=== PATIENT | female | born 2000 | race Two or more races ===

== ENCOUNTER 2024-12-22 03:32 | Emergency (ER) | payer SELFPAY ==
[2024-12-22 04:09] LABS: BASOPHILS PERCENT AUTO 0.1 % (0.0-1.0); EOSINOPHILS ABSOLUTE AUTO 0.1 K/mm3 (0.0-0.4); EOSINOPHILS PERCENT AUTO 0.6 % (0.0-6.0); HEMATOCRIT 38.2 % (37.0-47.0); HEMOGLOBIN 12.7 gm/dl (12.0-16.0); IMMATURE GRAN ABSOLUTE AUTO 0.05 K/mm3 (0.00-0.05); IMMATURE GRAN PERCENT AUTO 0.3 % (0.0-0.4); LYMPHOCYTES PERCENT AUTO 25.4 % (24.0-44.0); MEAN CORPUSCULAR HEMOGLOBIN 29.8 pg (28.0-32.0); MEAN CORPUSCULAR HGB CONC 33.2 g/dl (32.0-36.0); MEAN CORPUSCULAR VOLUME 89.7 fl (83.0-99.0); MEAN PLATELET VOLUME 9.8 fl (9.4-12.3); MONOCYTES ABSOLUTE AUTO 0.8 K/mm3 (0.0-0.8); MONOCYTES PERCENT AUTO 5.2 % (0.0-8.0); NEUTROPHILS ABSOLUTE AUTO 10.6 K/mm3 (1.8-7.7); NEUTROPHILS PERCENT AUTO 68.4 % (41.0-71.0); PLATELET COUNT,PLT 276 K/mm3 (150-400); RED BLOOD CELL COUNT 4.26 M/mm3 (4.10-5.30); WHITE BLOOD CELL COUNT,WBC 15.53 K/mm3 (3.9-11.3)
[2024-12-22] MEDS: Sodium Chloride 0.9% 1,000 ML IV ONE (04:11)
[2024-12-22] MEDS: Famotidine 20 MG/2 ML SDV IVPUSH ONE (04:12)
[2024-12-22] MEDS: Ondansetron 4 MG/2 ML SDV IVPUSH ONE ×2 (04:12→04:13)
[2024-12-22] MEDS: Pantoprazole 40 MG Vial IVPUSH ONE (04:12)
[2024-12-22] MEDS: Alum Hydrox/Mag Hydrox/Simeth 30 ML, Lidocaine 2% 15 ML PO ONE (04:12)
[2024-12-22 04:52] LABS: A/G RATIO 1.1 (1-2); ANION GAP 12.3 (5-15); BILIRUBIN TOTAL 0.6 mg/dL (0.2-1.0); BUN/CREATININE RATIO 13.3 (14-18); CALCIUM 9.3 mg/dL (8.5-10.1); CREATININE 0.9 mg/dL (0.55-1.02); EST CRCL DRUG DOSING (CG) 85.33 mL/min; POTASSIUM,K 3.3 mEq/L (3.5-5.1); PROTEIN TOTAL,TP 7.6 g/dl (6.4-8.2)
[2024-12-22 04:59] LABS: BARBITURATE SCREEN,URINE NEGATIVE (CUTOFF=200); BENZODIAZEPINES SCREEN,URINE NEGATIVE (CUTOFF=150); BUPRENORPHINE SCREEN,URINE NEGATIVE (CUTOFF=10); METHADONE SCREEN, URINE NEGATIVE (CUTOFF=200); METHAMPHETAMINES SCREEN, URINE NEGATIVE (CUTOFF=500); OXYCODONE SCREEN,URINE NEGATIVE (CUT0FF=100); THC SCREEN,URINE 20 NG/ML NEGATIVE (CUTOFF=50)
[2024-12-22 05:00] LABS: AMPHETAMINES SCREEN, URINE NEGATIVE (CUTOFF=500)
[2024-12-22] MEDS: Iopamidol 612 MG/ML 100 ML Bottle IVPUSH ONE (05:18)
[2024-12-22] MEDS: Sodium Chloride 0.9% 10 ML Syringe FLUSH PRN (05:18)
== END 2024-12-22 06:57 | disposition home or self-care (01) ==
LOC: JD.ED 03:32
DX: K29.70 Gastritis, unspecified, without bleeding (principal); K21.9 Gastro-esophageal reflux disease without esophagitis; Z79.899 Other long term (current) drug therapy
CPT/HCPCS: 36415; 74177; 80053; 80306; 80307; 81025; 83690; 85025; 96361; 96374; 96375; 99284; A9270; J2405; J2470; J7030; Q9967

== ENCOUNTER 2025-02-07 03:24 | Emergency (ER) | payer SELFPAY ==
[2025-02-07 04:13] LABS: BASOPHILS PERCENT AUTO 0.3 % (0.0-1.0); EOSINOPHILS ABSOLUTE AUTO 0.1 K/mm3 (0.0-0.4); EOSINOPHILS PERCENT AUTO 0.8 % (0.0-6.0); HEMATOCRIT 38.3 % (37.0-47.0); HEMOGLOBIN 12.8 gm/dl (12.0-16.0); IMMATURE GRAN ABSOLUTE AUTO 0.03 K/mm3 (0.00-0.05); IMMATURE GRAN PERCENT AUTO 0.3 % (0.0-0.4); LYMPHOCYTES ABSOLUTE AUTO 3.8 K/mm3 (1.0-4.8); LYMPHOCYTES PERCENT AUTO 36.9 % (24.0-44.0); MEAN CORPUSCULAR HEMOGLOBIN 30.4 pg (28.0-32.0); MEAN CORPUSCULAR HGB CONC 33.4 g/dl (32.0-36.0); MEAN PLATELET VOLUME 9.8 fl (9.4-12.3); MONOCYTES ABSOLUTE AUTO 0.7 K/mm3 (0.0-0.8); MONOCYTES PERCENT AUTO 6.7 % (0.0-8.0); NEUTROPHILS ABSOLUTE AUTO 5.6 K/mm3 (1.8-7.7); PLATELET COUNT,PLT 297 K/mm3 (150-400); RED BLOOD CELL COUNT 4.21 M/mm3 (4.10-5.30); WHITE BLOOD CELL COUNT,WBC 10.15 K/mm3 (3.9-11.3)
[2025-02-07] MEDS: Sodium Chloride 0.9% 1,000 ML IV ONE (04:20)
[2025-02-07] MEDS: Alum Hydrox/Mag Hydrox/Simeth 30 ML, Lidocaine 2% 15 ML PO ONE (04:20)
[2025-02-07] MEDS: Famotidine 20 MG Tab PO ONE (04:20)
[2025-02-07 04:21] LABS: APPEARANCE,URINE CLEAR (Clear); BILIRUBIN,URINE NEGATIVE (Negative); COLOR,URINE YELLOW (Yellow); GLUCOSE,URINE NEGATIVE (Negative); KETONES,URINE NEGATIVE (Negative); LEUKOCYTE ESTERASE,URINE NEGATIVE (Negative); NITRITE,URINE NEGATIVE (Negative); OCCULT BLOOD,URINE NEGATIVE (Negative); PROTEIN,URINE NEGATIVE (Negative); UROBILINOGEN,URINE 0.2 (0.2-1.0)
[2025-02-07 04:26] LABS: ALBUMIN 3.9 g/dl (3.4-5.0); ANION GAP 11.3 (5-15); BILIRUBIN TOTAL 0.4 mg/dL (0.2-1.0); BUN/CREATININE RATIO 12.5 (14-18); CALCIUM 9.3 mg/dL (8.5-10.1); CREATININE 0.8 mg/dL (0.55-1.02); EST CRCL DRUG DOSING (CG) 95.89 mL/min; POTASSIUM,K 3.3 mEq/L (3.5-5.1); PROTEIN TOTAL,TP 7.7 g/dl (6.4-8.2)
[2025-02-07] MEDS: Sodium Chloride 0.9% 10 ML Syringe FLUSH SCH (07:22)
[2025-02-07] MEDS: Gadobenate Dimeglumine 529 MG/ML 15 ML SDV IVPUSH ONE (07:22)
[2025-02-07] MEDS: fentaNYL 100 MCG/2 ML SDV IVPUSH ONE (08:45)
[2025-02-07] MEDS: Ondansetron 4 MG/2 ML SDV IVPUSH ONE (08:46)
== END 2025-02-07 11:30 | disposition home or self-care (01) ==
LOC: JD.ED 03:24
DX: K21.9 Gastro-esophageal reflux disease without esophagitis (principal); Z79.899 Other long term (current) drug therapy
CPT/HCPCS: 36415; 74183; 76705; 80053; 81003; 83690; 85025; 96361; 96374; 96375; 99284; A9270; A9577; J2405; J3010; J7030

== ENCOUNTER 2025-06-05 03:40 | Inpatient (IN) | payer SELFPAY ==
[2025-06-05] MEDS ORDERED: Naloxone 0.4 MG/ML SDV IVPUSH PRN (03:56)
[2025-06-05] MEDS: Ondansetron 4 MG/2 ML SDV IVPUSH ONE (04:06)
[2025-06-05] MEDS: Ketorolac 60 MG/2 ML SDV IVPUSH STA (04:10)
[2025-06-05] MEDS ORDERED: Sodium Chloride 0.9% 10 ML Syringe FLUSH PRN (04:17)
[2025-06-05 04:18] LABS: BASOPHILS ABSOLUTE AUTO 0.0 K/mm3 (0.0-0.2); BASOPHILS PERCENT AUTO 0.2 % (0.0-1.0); EOSINOPHILS ABSOLUTE AUTO 0.1 K/mm3 (0.0-0.4); EOSINOPHILS PERCENT AUTO 0.2 % (0.0-6.0); IMMATURE GRAN ABSOLUTE AUTO 0.09 K/mm3 (0.00-0.05); IMMATURE GRAN PERCENT AUTO 0.4 % (0.0-0.4); LYMPHOCYTES ABSOLUTE AUTO 6.5 K/mm3 (1.0-4.8); LYMPHOCYTES PERCENT AUTO 31.7 % (24.0-44.0); MEAN PLATELET VOLUME 9.3 fl (9.4-12.3); MONOCYTES ABSOLUTE AUTO 1.3 K/mm3 (0.0-0.8); MONOCYTES PERCENT AUTO 6.2 % (0.0-8.0); NEUTROPHILS ABSOLUTE AUTO 12.5 K/mm3 (1.8-7.7); NEUTROPHILS PERCENT AUTO 61.3 % (41.0-71.0); NRBC ABSOLUTE 0.00 (0.00-0.02); NRBC PERCENT 0.0 % (0.0-0.2); PLATELET COUNT,PLT 334 K/mm3 (150-400); RED BLOOD CELL COUNT 4.76 M/mm3 (4.10-5.30); WHITE BLOOD CELL COUNT,WBC 20.48 K/mm3 (3.9-11.3)
[2025-06-05 04:50] LABS: A/G RATIO 1.1 (1-2); ALANINE AMINOTRANSFERASE,ALT 39 U/L (14-59); ASPARTATE AMNIOTRANSFERASE,AST 60 U/L (15-37); BILIRUBIN TOTAL 0.8 mg/dL (0.2-1.0); BLOOD UREA NITROGEN,BUN 11 mg/dL (7-18); CARBON DIOXIDE,CO2 25 mEq/L (21-32); CHLORIDE,CL 103 mEq/L (98-107); CREATININE 1.0 mg/dL (0.55-1.02); ESTIMATED GFR 80 mL/min (>60); GLUCOSE RANDOM 218 mg/dL (70-99); POTASSIUM,K 2.8 mEq/L (3.5-5.1); PROTEIN TOTAL,TP 7.9 g/dl (6.4-8.2); SODIUM,NA 140 mEq/L (136-145)
[2025-06-05] MEDS: Iopamidol 612 MG/ML 30 ML SDV IVPUSH ONE (06:14)
[2025-06-05] MEDS: Iopamidol 612 MG/ML 100 ML Bottle IVPUSH ONE (06:14)
[2025-06-05] MEDS: Sodium Chloride 0.9% 10 ML Syringe FLUSH ONE (06:14)
[2025-06-05] MEDS: fentaNYL 100 MCG/2 ML SDV IVPUSH ONE ×2 (06:35→08:56)
[2025-06-05] MEDS: Potassium Chloride 20 MEQ Tab.ER PO ONE (07:35)
[2025-06-05 08:40] LABS: AMPHETAMINES SCREEN, URINE NEGATIVE (CUTOFF=500); BUPRENORPHINE SCREEN,URINE NEGATIVE (CUTOFF=10); METHADONE SCREEN, URINE NEGATIVE (CUTOFF=200); METHAMPHETAMINES SCREEN, URINE NEGATIVE (CUTOFF=500); OXYCODONE SCREEN,URINE NEGATIVE (CUT0FF=100); THC SCREEN,URINE 20 NG/ML NEGATIVE (CUTOFF=50)
[2025-06-05 09:26] LABS: CHOLESTEROL HDL 42.0 mg/dL (40-59); CHOLESTEROL LDL DIRECT 94.0 mg/dL (<100); CHOLESTEROL TOTAL 145.0 mg/dL (<200)
[2025-06-05 09:27] LABS: ETHANOL BLOOD MEDICAL 0.0 gm% (0.00)
[2025-06-05] MEDS: Ondansetron 4 MG/2 ML SDV IV PRN (17:15)
[2025-06-06 04:38] LABS: MEAN PLATELET VOLUME 10.0 fl (9.4-12.3); NRBC ABSOLUTE 0.00 (0.00-0.02); NRBC PERCENT 0.0 % (0.0-0.2); PLATELET COUNT,PLT 258 K/mm3 (150-400); RED BLOOD CELL COUNT 4.41 M/mm3 (4.10-5.30); WHITE BLOOD CELL COUNT,WBC 18.98 K/mm3 (3.9-11.3)
[2025-06-06 05:02] LABS: A/G RATIO 1.1 (1-2); ALANINE AMINOTRANSFERASE,ALT 154.0 U/L (14-59); ASPARTATE AMNIOTRANSFERASE,AST 107.0 U/L (15-37); BILIRUBIN TOTAL 0.8 mg/dL (0.2-1.0); BLOOD UREA NITROGEN,BUN 8.0 mg/dL (7-18); CARBON DIOXIDE,CO2 23.0 mEq/L (21-32); CHLORIDE,CL 109.0 mEq/L (98-107); CREATININE 0.7 mg/dL (0.55-1.02); EST CRCL DRUG DOSING (CG) 105.17 mL/min; ESTIMATED GFR 122.0 mL/min (>60); GLUCOSE RANDOM 109.0 mg/dL (70-99); POTASSIUM,K 3.8 mEq/L (3.5-5.1); PROTEIN TOTAL,TP 5.8 g/dl (6.4-8.2); SODIUM,NA 139.0 mEq/L (136-145)
[2025-06-06] MEDS: Magnesium Sulf/Wat 4 GM/50 mL 4 GM in Premix Bag 1 BAG IV ONE (08:08)
[2025-06-06] MEDS: Dextrose 5%-0.9% NaCl with KCl 1,000 ML IV SCH (17:25)
[2025-06-07 05:35] LABS: MEAN PLATELET VOLUME 9.8 fl (9.4-12.3); NRBC ABSOLUTE 0.00 (0.00-0.02); NRBC PERCENT 0.0 % (0.0-0.2); PLATELET COUNT,PLT 243 K/mm3 (150-400); RED BLOOD CELL COUNT 4.41 M/mm3 (4.10-5.30); WHITE BLOOD CELL COUNT,WBC 26.39 K/mm3 (3.9-11.3)
[2025-06-07 05:40] LABS: A/G RATIO 1.0 (1-2); ALANINE AMINOTRANSFERASE,ALT 89.0 U/L (14-59); ASPARTATE AMNIOTRANSFERASE,AST 43.0 U/L (15-37); BILIRUBIN TOTAL 0.8 mg/dL (0.2-1.0); BLOOD UREA NITROGEN,BUN 6.0 mg/dL (7-18); CARBON DIOXIDE,CO2 27.0 mEq/L (21-32); CHLORIDE,CL 105.0 mEq/L (98-107); CREATININE 0.7 mg/dL (0.55-1.02); EST CRCL DRUG DOSING (CG) 105.17 mL/min; ESTIMATED GFR 122.0 mL/min (>60); GLUCOSE RANDOM 131.0 mg/dL (70-99); POTASSIUM,K 4.1 mEq/L (3.5-5.1); PROTEIN TOTAL,TP 5.9 g/dl (6.4-8.2); SODIUM,NA 136.0 mEq/L (136-145)
[2025-06-07 06:01] LABS: INR 1.27
[2025-06-07] MEDS ORDERED: Sennosides/Docusate Sodium 50-8.6 MG Tab PO PRN (07:49)
[2025-06-07] MEDS: Lactated Ringers 1,000 ML IV SCH (18:06)
[2025-06-08 05:51] LABS: BASOPHILS ABSOLUTE AUTO 0.0 K/mm3 (0.0-0.2); BASOPHILS PERCENT AUTO 0.2 % (0.0-1.0); EOSINOPHILS ABSOLUTE AUTO 0.1 K/mm3 (0.0-0.4); EOSINOPHILS PERCENT AUTO 0.5 % (0.0-6.0); IMMATURE GRAN ABSOLUTE AUTO 0.12 K/mm3 (0.00-0.05); IMMATURE GRAN PERCENT AUTO 0.6 % (0.0-0.4); LYMPHOCYTES ABSOLUTE AUTO 1.5 K/mm3 (1.0-4.8); LYMPHOCYTES PERCENT AUTO 7.1 % (24.0-44.0); MEAN PLATELET VOLUME 9.5 fl (9.4-12.3); MONOCYTES ABSOLUTE AUTO 1.5 K/mm3 (0.0-0.8); MONOCYTES PERCENT AUTO 7.0 % (0.0-8.0); NEUTROPHILS ABSOLUTE AUTO 18.3 K/mm3 (1.8-7.7); NEUTROPHILS PERCENT AUTO 84.6 % (41.0-71.0); NRBC ABSOLUTE 0.00 (0.00-0.02); NRBC PERCENT 0.0 % (0.0-0.2); PLATELET COUNT,PLT 220 K/mm3 (150-400); RED BLOOD CELL COUNT 3.98 M/mm3 (4.10-5.30); WHITE BLOOD CELL COUNT,WBC 21.64 K/mm3 (3.9-11.3)
[2025-06-08 06:17] LABS: A/G RATIO 0.8 (1-2); ALANINE AMINOTRANSFERASE,ALT 64.0 U/L (14-59); ASPARTATE AMNIOTRANSFERASE,AST 30.0 U/L (15-37); BILIRUBIN TOTAL 0.9 mg/dL (0.2-1.0); BLOOD UREA NITROGEN,BUN 5.0 mg/dL (7-18); CARBON DIOXIDE,CO2 26.0 mEq/L (21-32); CHLORIDE,CL 105.0 mEq/L (98-107); CREATININE 0.5 mg/dL (0.55-1.02); EST CRCL DRUG DOSING (CG) 147.23 mL/min; ESTIMATED GFR 133.0 mL/min (>60); GLUCOSE RANDOM 86.0 mg/dL (70-99); PHOSPHORUS 1.2 mg/dL (2.6-4.7); POTASSIUM,K 3.6 mEq/L (3.5-5.1); PROTEIN TOTAL,TP 6.0 g/dl (6.4-8.2); SODIUM,NA 138.0 mEq/L (136-145)
[2025-06-08] MEDS: Potassium Phosphates 30 MMOLE in Sodium Chloride 0.9% 500 ML IV ONE (12:02)
[2025-06-08] MEDS: Magnesium Sulfat/D5W 1GM/100ML 1 GM in Premix Bag 1 BAG IV ONE (12:02)
[2025-06-08] MEDS: Lactated Ringers 1,000 ML IV SCH (18:54)
[2025-06-09 05:39] LABS: BASOPHILS ABSOLUTE AUTO 0.0 K/mm3 (0.0-0.2); BASOPHILS PERCENT AUTO 0.3 % (0.0-1.0); EOSINOPHILS ABSOLUTE AUTO 0.2 K/mm3 (0.0-0.4); EOSINOPHILS PERCENT AUTO 1.1 % (0.0-6.0); IMMATURE GRAN ABSOLUTE AUTO 0.08 K/mm3 (0.00-0.05); IMMATURE GRAN PERCENT AUTO 0.5 % (0.0-0.4); LYMPHOCYTES ABSOLUTE AUTO 1.4 K/mm3 (1.0-4.8); LYMPHOCYTES PERCENT AUTO 9.0 % (24.0-44.0); MEAN PLATELET VOLUME 9.2 fl (9.4-12.3); MONOCYTES ABSOLUTE AUTO 1.5 K/mm3 (0.0-0.8); MONOCYTES PERCENT AUTO 9.6 % (0.0-8.0); NEUTROPHILS ABSOLUTE AUTO 12.5 K/mm3 (1.8-7.7); NEUTROPHILS PERCENT AUTO 79.5 % (41.0-71.0); NRBC ABSOLUTE 0.00 (0.00-0.02); NRBC PERCENT 0.0 % (0.0-0.2); PLATELET COUNT,PLT 234 K/mm3 (150-400); RED BLOOD CELL COUNT 3.73 M/mm3 (4.10-5.30); WHITE BLOOD CELL COUNT,WBC 15.75 K/mm3 (3.9-11.3)
[2025-06-09 05:51] LABS: A/G RATIO 0.8 (1-2); ALANINE AMINOTRANSFERASE,ALT 53.0 U/L (14-59); ASPARTATE AMNIOTRANSFERASE,AST 22.0 U/L (15-37); BILIRUBIN TOTAL 0.6 mg/dL (0.2-1.0); BLOOD UREA NITROGEN,BUN 4.0 mg/dL (7-18); CARBON DIOXIDE,CO2 27.0 mEq/L (21-32); CHLORIDE,CL 105.0 mEq/L (98-107); CREATININE 0.6 mg/dL (0.55-1.02); EST CRCL DRUG DOSING (CG) 122.69 mL/min; ESTIMATED GFR 127.0 mL/min (>60); GLUCOSE RANDOM 98.0 mg/dL (70-99); PHOSPHORUS 1.9 mg/dL (2.6-4.7); POTASSIUM,K 3.5 mEq/L (3.5-5.1); PROTEIN TOTAL,TP 6.3 g/dl (6.4-8.2); SODIUM,NA 138.0 mEq/L (136-145)
[2025-06-09] MEDS: Potassium Phosphates 30 MMOLE in Sodium Chloride 0.9% 500 ML IV SCH (12:52)
== END 2025-06-09 18:53 | disposition home or self-care (01) | DRG 440 ==
LOC: JD.ED 03:40 → JD.MS 11:54
PROVIDERS: ADMIT Internal Medicine; ATTEND Student in an Organized Health Care Education/Training Program
DX: K85.90 Acute pancreatitis without necrosis or infection, unspecified (principal); K29.00 Acute gastritis without bleeding; D72.829 Elevated white blood cell count, unspecified; R73.9 Hyperglycemia, unspecified; E87.6 Hypokalemia; E83.42 Hypomagnesemia; E83.39 Other disorders of phosphorus metabolism; K21.9 Gastro-esophageal reflux disease without esophagitis; K80.20 Calculus of gallbladder without cholecystitis without obstruction; R51.9 Headache, unspecified
CPT/HCPCS: 36415; 74177; 74177-26; 76705; 76705-26; 80053; 80061; 80306; 80307; 83036; 83690; 83735; 84100; 84703; 85025; 85027; 85610; 96361; 96365; 96366; 96367; 96375; 96376; 99284; 99285-25; A9270-GY; J1171; J1308; J1650; J1885; J2405; J2470; J2543; J2765; J3010; J3475; J3480; J3490; J7030; J7040; J7120; Q9967

== ENCOUNTER 2025-06-14 13:03 | Emergency (ER) | payer SELFPAY ==
[2025-06-14] MEDS ORDERED: Ondansetron 4 MG/2 ML SDV IVPUSH ONE ×2 (13:44→13:45)
[2025-06-14] MEDS ORDERED: Naloxone 0.4 MG/ML SDV IVPUSH PRN (13:45)
== END 2025-06-14 13:42 | disposition left against medical advice (07) ==
LOC: EDBD 13:03 → JD.ED 13:03 → MERGE 13:03 → JD.ED 13:55
DX: K86.1 Other chronic pancreatitis (principal); Z79.899 Other long term (current) drug therapy
CPT/HCPCS: 99283

== ENCOUNTER 2025-06-26 09:49 | Day surgery (SDC) | payer OTHER ==
[~2025-06-26 09:49] MED LIST: Sodium Chloride 0.9% 10 ML Syringe FLUSH PRN; Sodium Chloride 0.9% 10 ML Syringe FLUSH SCH; Sodium Chloride 0.9% 50 ML SDV ONE
[2025-06-26] MEDS: Lactated Ringers 1,000 ML IV SCH (10:05)
[2025-06-26] MEDS ORDERED: dexmedeTOMIDine HCl 200 MCG/2 ML SDV ONE (11:40)
[2025-06-26] MEDS ORDERED: Ketamine HCL/NACL, ISO-OSM 50 MG/5 ML Syringe ONE (11:40)
[2025-06-26] MEDS ORDERED: Propofol 200 MG/20 ML SDV ONE (11:40)
[2025-06-26] MEDS ORDERED: Ondansetron 4 MG/2 ML SDV ONE (11:40)
[2025-06-26] MEDS ORDERED: propofoL 500 MG/50 ML 50 ML ONE (11:40)
[2025-06-26] MEDS ORDERED: Dexamethasone 4 MG/ML 5 ML MDV ONE (11:40)
[2025-06-26] MEDS ORDERED: Phenylephrine 1% 10 MG/ML SDV ONE (11:41)
[2025-06-26] MEDS ORDERED: fentaNYL 250 MCG/5 ML SDV ONE (11:41)
[2025-06-26] MEDS: Ondansetron 4 MG/2 ML SDV IVPUSH PRN (13:55)
[2025-06-26] MEDS: fentaNYL 100 MCG/2 ML SDV IVPUSH PRN (14:34)
[2025-06-26] MEDS: Iopamidol 612 MG/ML 30 ML SDV ONE (14:40)
[2025-06-26] MEDS: EPINEPHrine 1 MG/ML SDV ONE (14:42)
[2025-06-26] MEDS: Ketorolac 30 MG/ML SDV IVPUSH PRN (14:54)
[2025-06-26] MEDS: Acetaminophen Soln 650 MG/20.3 ML UD Cup PO ONE (14:58)
== END 2025-06-26 17:55 | disposition home or self-care (01) ==
LOC: JD.SDS 09:49
PROVIDERS: ATTEND Surgery
DX: K80.10 Calculus of gallbladder with chronic cholecystitis without obstruction (principal); K82.8 Other specified diseases of gallbladder; K85.90 Acute pancreatitis without necrosis or infection, unspecified; Z79.899 Other long term (current) drug therapy
CPT/HCPCS: 47563; 74300; A9270; J0169; J0665; J0690; J1100; J1885; J2405; J2704; J3010; J7120; Q9967; 00790; J1171; J2371; J3490